=== PATIENT | female | born 1970 | race Caucasian/White ===

== ENCOUNTER 2019-10-28 09:46 | Outpatient (CLI) | payer BC, SELFPAY ==
--- NOTE | ~2019-10-28 | XR_ITS ---
EXAMINATION: XR lg joint inject/asp w image DATE: 10/28/2019 10:47 INDICATION: Left shoulder adhesive capsulitis TECHNIQUE: A time-out was performed to verify the patient's name, date of , and procedure to b e performed. The procedure including the risks, benefits, and alternatives was discussed with the pat ient. Risks discussed included bleeding and infection. The patient understood the risks and agreed to proceed. The skin overlying the rotator cuff interval of the left glenohumeral joint was prepped an d draped in usual sterile fashion. Anesthetic was administered with 1% lidocaine subcutaneously. A 22 G needle was advanced under fluoroscopic guidance into the joint. Injection of 0.4 mL of Omnipaqu e 240 confirmed intra-articular position of the needle. Subsequently, injectate consisting of 4 mm o f a 3:1 mixture of 1% lidocaine: 40 mg/mL triamcinolone for a total dosage of 40 mg triamcinolone was instilled. Washout of contrast was seen confirming intra-articular administration. The needle was re moved and the entry site was cleaned and dressed. There were no immediate complications. Fluoroscopy exposure time was 0.1 minutes. The total number of images was 2. FINDINGS: Real-time fluoroscopy demonstrates the needle in the left glenohumeral joint. Patient's akash n prior to procedure:3/10. Patient's pain following the procedure: 0/10. IMPRESSION: 1. Left glenohumeral injection of local anesthetic and steroid with decrease in the patient's present ing pain. Reviewed, dictated and finalized at location A. SERVICE INSTRUCTOR IMPRESSION: 1. Left glenohumeral injection of local anesthetic and steroid with decrease in the patient's presenting pain.
== END 2019-10-28 09:47 | disposition home or self-care (01) ==
PROVIDERS: PCP Family Medicine; Visit Provider Physician Assistant
DX: M75.02 Adhesive capsulitis of left shoulder (principal)
CPT/HCPCS: 20610; 77002; J3301; Q9966

== ENCOUNTER → 2021-03-05 14:22 | Outpatient (CLI) | payer OTHER, SELFPAY ==
--- NOTE | ~2021-03-05 | XR_ITS ---
XR_CERV2-3V_CR INDICATION: Neck pain TECHNIQUE: 3 views of the cervical spine. FINDINGS: No prior studies for comparison. The cervical spine is visualized to the cervicothoracic junction. There is no prevertebral soft tiss ue swelling, listhesis, or loss of vertebral body height. Intervertebral disc spaces are normal. Th e osseous central canal is patent. No displaced cervical spine fractures are identified. IMPRESSION: 1. No acute osseous abnormality of the cervical spine. Reviewed, dictated and finalized at location A.
== END ==
PROVIDERS: PCP Family Medicine; Visit Provider Physician Assistant
DX: M54.2 Cervicalgia (principal)
CPT/HCPCS: 72040

== ENCOUNTER 2022-05-25 14:25 | Outpatient (CLI) | payer OTHER, SELFPAY ==
--- NOTE | ~2022-05-25 | US_ITS ---
EXAMINATION: US venous doppler [facility] DATE: 05/25/2022 15:05 INDICATION: Bilateral lower limb edema TECHNIQUE: Browne scale images without and with compression and Doppler images of the bilateral lower e xtremity veins were obtained. COMPARISON: None FINDINGS: The right common femoral vein, profunda femoral vein, femoral vein, popliteal vein, peroneal trunk, p osterior tibial veins, and greater saphenous vein are patent. The left common femoral vein, profunda femoral vein, femoral vein, popliteal vein, peroneal trunk, po sterior tibial veins, and greater saphenous vein are patent. IMPRESSION: 1. Patent bilateral lower extremity veins. No evidence of deep venous thrombosis. Reviewed, dictated and finalized at location A. IMPRESSION: 1. Patent bilateral lower extremity veins. No evidence of deep venous thrombosi s.
--- NOTE | ~2022-05-25 | XR_ITS ---
XR lumbar spine 2-3V 05/25/2022 14:51 Indication: Low back pain Procedure: 2 views lumbar spine Comparison: No prior studies for comparison. Findings: Vertebral body heights are maintained. Pedicles intact. Sacral foramen are symmetric. No fr acture, subluxation or spondylolisthesis. Impression: 1: No significant abnormality of the lumbar spine. Reviewed, dictated and finalized at location B. Impression: 1: No significant abnormality of the lumbar spine.
== END 2022-05-25 14:26 | disposition home or self-care (01) ==
PROVIDERS: PCP Family Medicine; Visit Provider Physician Assistant
DX: R60.9 Edema, unspecified (principal)
CPT/HCPCS: 72100; 93970

== ENCOUNTER 2023-12-29 00:42 | Day surgery (SDC) | payer OTHER, SELFPAY ==
--- NOTE | 2023-12-20 15:51 | PC.NURSE ---
Report to the Outpatient Waiting Room, entrance under the green pavilion located off [facility], at time ____7:15 am___ on date ____[id number]___. Planned Procedure Time: ____9:15am____. Time changes happen often and if your time is changed the preop area will call you the afternoon before. - You and your visitor will be asked to self-screen and do not enter if you have any COVID symptoms. - A mask is optional within the hospital at this time. Patients may have clear liquids (water, carbonated beverages, clear teas, apple juice) until 3 hours prior to surgery with a maximum of 20 ounces. (stop liquids at 6:15 am) - No food from midnight until time of surgery Take the following medications with a SIP of water the morning of surgery: _Bupropion, Topiramate. May take Flonase [place]. DO NOT STOP ANY OF YOUR OTHER PRESCRIPTION MEDICATIONS PRIOR TO SURGERY ?EXCEPT THE FOLLOWING Medications to discontinue per physician Hold Allyn morning of surgery. Hold Naltrexone morning of surgery. Hold Vitamin D x 3 days prior to surgery. Please no make-up, nail martiniquais, hairspray, perfume, deodorant, or body powder the day of surgery. No jewelry (including any body piercings) or valuables the day of surgery, leave them at home. Please take a shower or bath the night before, or the morning of, surgery with an antibacterial soap. Wear comfortable, loose fitting clothing. - Jewelry must be removed prior to entering the operating room. Rings and piercings that are not removed may be cut off. - The hospital will not accept responsibility for valuables. - Please leave all valuables, including medications, at home the day of surgery. If you are going home after surgery, a licensed vacuum truck driver must drive you home. - NO public transportation without another adult if you receive anesthesia. - We recommend that an adult stay with you for 24 hours following discharge. - We also recommend that you do not drive, make important decision, drink alcoholic beverages, or take any drugs that were not prescribed by your health care provider for at least 24 hours after your discharge time. Follow any additional instructions given to you from your surgeon. If you or anyone in your household have experienced Covid symptoms in the past week, please notify your surgeon or the nurse liaison at the phone number below for possible testing. Telephone instructions given to ___Eunice (patient) and asked if any additional questions and then verbalized understanding. Patient advised to call surgeon office or pre surgery nurse liaison [phone] if any additional questions.
[2023-12-20 16:19] VITALS: BMI 24.7
--- NOTE | 2023-12-24 14:58 | PM.IMHP ---
H&P: HPI History of Present Illness Date/Time: 12/24/23 14:58 Chief Complaint: incontinence Narrative: 53-year-old with stress incontinence who desires surgical correction Review of Systems Review of Systems: All systems reviewed & are unremarkable except as noted in HPI and below PMFSH Past Medical History Medical History Depression Mast cell activation syndrome Migraines Non-allergic rhinitis PMDD (premenstrual dysphoric disorder) Stress incontinence Surgical History Surgical History History of endometrial ablation 07/2009 History of foot surgery 1997 History of left salpingo-oophorectomy 10/25/2017 History of nasal septoplasty History of tonsillectomy History of total vaginal hysterectomy 09/11/2013 Hx of LASIK 2009 Family History Family History Father Heart disease Mother No problems noted. Social History Social History Smoking status: Never smoker Second hand tobacco smoke exposure: No Alcohol intake: current Alcohol use details: rarely less than one a week Substance use: never Substance use type: does not use Lack of Transportation: No Lack of Food: Never True Current Housing: I Have Housing Concerned About Future Housing: No Difficulty Paying Gas/Electric Bills: No Difficulty Paying for Meds: No Currently Unemployed: YES Education: Bachelor's Degree Difficulty w/ Childcare or Family Care: No Living arrangements: with family Occupation/Education: occupation Gender identity (if verbalized by the patient): Female Meds Home Medications and Allergies Home Medications Medication Instructions Recorded Confirmed Type amitriptyline 25 mg tablet 25 mg PO HS 11/04/22 12/20/23 History topiramate 50 mg tablet 50 mg PO DAILY 11/04/22 12/20/23 History zolpidem 5 mg tablet 5 mg PO QHS #30 tabs 09/27/23 12/20/23 Rx bupropion HCl 100 mg tablet,12 hr See Rx Instructions .Route 12/19/23 12/20/23 Rx sustained-release .COMPLEX #270 tabs calcium-vitamin D2 1,000 units BYMOUTH DAILY 12/20/23 12/20/23 History fluticasone propionate 50 1 spray intranasal DAILY 12/20/23 12/20/23 History mcg/actuation nasal spray,suspension naltrexone 50 mg tablet 4.5 mg PO DAILY 12/20/23 12/20/23 History Allergies Allergy/AdvReac Type Severity Reaction Status Date / Time erythromycin base Allergy Unknown UNKNOWN Verified 12/20/23 16:25 REACTION Exam Narrative: no acute distress normal breathing urethral mobility documented Assessment and Plan Assessment and plan (1) JULY (stress urinary incontinence, female): Code(s): N39.3 - Stress incontinence (female) (male) Status: Acute Assessment and Plan: plan for urethral sling. Understands risks of bleeding, infection, damage to surrounding organs, damage to the urinary tract, vaginal mesh extrusion, urinary tract mesh erosion, obstructive voiding requiring secondary procedure, hip and leg pain. Agrees to proceed
--- NOTE | 2023-12-29 04:42 | WPDHPUPDATE1 ---
History and Physical Update Update Date/Time: 12/29/23 04:42 History and Physical has been reviewed, including an updated exam of the patient. There are NO changes in the patient's condition. Risks, benefits, and alternatives have been discussed and questions answered. Patient agrees to proceed with procedure.
--- NOTE | 2023-12-29 07:06 | WPDANESEPPF ---
Anes - Initial Pre Proc Eval Procedure: Operation Date: 12/29/23 08:30 Proposed Procedures p Urethral Sling - Dominick Simpson MD Date/Time: 12/29/23 07:06 Surgeon: Dominick Simpson MD Pre Op Diagnosis: stress incont Patient Data Age: 53 Gender: F Height: 1.6 m Weight: 63.5 kg Allergies Allergy/AdvReac Type Severity Reaction Status Date / Time erythromycin base Allergy Unknown UNKNOWN Verified 12/20/23 16:25 REACTION Home Medications Medication Instructions Recorded Confirmed Type amitriptyline 25 mg tablet 25 mg PO HS 11/04/22 12/20/23 History topiramate 50 mg tablet 50 mg PO DAILY 11/04/22 12/20/23 History bupropion HCl 100 mg tablet,12 hr See Rx Instructions .Route 12/19/23 12/20/23 Rx sustained-release .COMPLEX #270 tabs calcium-vitamin D2 1,000 units BYMOUTH DAILY 12/20/23 12/20/23 History fluticasone propionate 50 1 spray intranasal DAILY 12/20/23 12/20/23 History mcg/actuation nasal spray,suspension naltrexone 50 mg tablet 4.5 mg PO DAILY 12/20/23 12/20/23 History zolpidem 5 mg tablet 5 mg PO QHS #30 tabs 12/24/23 Rx Patient hx anesthesia problems: post op nausea/vomiting Family hx anesthesia problems: none Results Review: All pre-operative results and documents have been reviewed as part of the pre-operative evaluation. [facility] Past Medical History Medical History Depression Mast cell activation syndrome Migraines Non-allergic rhinitis PMDD (premenstrual dysphoric disorder) Stress incontinence Surgical History Surgical History History of endometrial ablation 07/2009 History of foot surgery 1997 History of left salpingo-oophorectomy 10/25/2017 History of nasal septoplasty History of tonsillectomy History of total vaginal hysterectomy 09/11/2013 Hx of LASIK 2009 Family History Family History Father Heart disease Mother No problems noted. Social History Social History Smoking status: Never smoker Second hand tobacco smoke exposure: No Alcohol intake: current Alcohol use details: rarely less than one a week Substance use: never Substance use type: does not use Lack of Transportation: No Lack of Food: Never True Current Housing: I Have Housing Concerned About Future Housing: No Difficulty Paying Gas/Electric Bills: No Difficulty Paying for Meds: No Currently Unemployed: YES Education: Bachelor's Degree Difficulty w/ Childcare or Family Care: No Living arrangements: with family Occupation/Education: occupation Gender identity (if verbalized by the patient): Female Anes - Eval Final PreProcedure Day of Procedure 12/29/23 07:06 Patient weight: normal Heart: regular rate and rhythm Lungs: clear to auscultation Airway: Mallampati scale class II Neurological: alert and oriented Last oral intake: >/= 8 hours ASA classification: II Emergent: no Anesthetic plan: proceed Anesthesia type and monitoring: general GIVS and standard monitoring Results Review: All pre-operative results and documents have been reviewed as part of the pre-operative evaluation. Informed Consent: The patient's anesthetic plan and its attendant risks and benefits were discussed with the patient/family/POA. Questions were solicited and answers provided to the satisfaction of the patient/family/POA.
[2023-12-29 07:20] VITALS: BP 118/73; PULSE 77; RESP 14; TEMP 36.2; O2SAT 100
[2023-12-29] MEDS: SCOPOLAMINE 1 MG PATCH 1 PATCH TRANSDERM (07:24)
[2023-12-29] MEDS: LACTATED RINGERS 1,000 ML 30 ML IV CONT (07:24)
[2023-12-29] MEDS: ceFAZolin 2 GM/D5W 50 ML 2 GM/50 ML BAG IVPB (07:58)
[2023-12-29] MEDS: BUPIVACAINE/EPINEPHRINE 0.5% 30 ML VIAL 20 ML INFILTRATE (08:19)
--- NOTE | 2023-12-29 08:31 | W.PM.PROC2 ---
Procedure Note - Detailed Date of Procedure 12/29/23 Pre-op Diagnosis stress incont Post-op Diagnosis Same Procedure Performed mid urethral sling cystoscopy Surgeon Dominick Simpson MD Anesthesia MAC and Local Indications This is a female with confirm stress urinary incontinence. She desires surgical correction. She understands the risks of bleeding, infection, injury to the urinary tract, vaginal mesh extrusion, urinary tract mesh erosion, obstructive voiding requiring a secondary procedure, hip and leg pain, dyspareunia, inability to improve overactive bladder symptoms. She agrees to proceed. Description of Procedure She was correctly identified. Informed consent obtained. She was brought the operating room. She was given appropriate anesthesia. She was given appropriate perioperative antibiotics. A time-out performed. I marked out the site of the inner thigh incisions. I anesthetized the skin and made those incisions. I anesthetized the anterior vaginal wall over the mid urethra. I made a 1 cm incision. I dissected out laterally taking great care not to injure the refilled vaginal wall. I passed the helical trocars. First on the left. Then on the right. I did this from the thigh incision towards the vaginal incision. The sling was connected to the trocars and brought out through the thigh incision. I tensioned the sling appropriately. I cut and the plastic sheaths. I then closed the incision with 2 0 Vicryl. On cystoscopy there is no tumors or surgical artifact. There was no surgical artifact in the urethra. I cut the excess sling material. Close incisions with glue. She was awakened and transferred to the PACU in stable condition. Implants Urethral sling Drains No Packing No Pathology None sent Complications No immediate complications Condition Stable Disposition PACU
[2023-12-29 08:33] VITALS: BP 109/64; PULSE 77; RESP 16; O2SAT 100
[2023-12-29 09:00] VITALS: BP 108/66; PULSE 70; RESP 20
[2023-12-29 09:30] VITALS: BP 110/68; PULSE 70; RESP 20
== END 2023-12-29 09:35 | disposition home or self-care (01) ==
PROVIDERS: PCP Family Medicine; Visit Provider Urology
PROC: (CPT 57288; principal; 2023-12-29 08:30)
DX: N39.3 Stress incontinence (female) (male) (principal); F32.A Depression, unspecified
CPT/HCPCS: 57288; A9270; C1771; J0690; J1100; J2250; J2405; J2704; J3010; J7120

== ENCOUNTER 2024-12-06 00:19 | Day surgery (SDC) | payer OTHER, SELFPAY ==
[2024-11-29 15:30] VITALS: BMI 23.4
--- OUTSIDE RECORDS SUMMARY | 2024-12-06 00:22 | XMS_ITS | Continuity of Care Document ---
Author Organization [facility] Address [address] [facility] [address] [place] [address] Phone Care Team Providers Care Washer Engineer Name Role Phone Kyle Byrd MD Unavailable Unavailable Allergies, Adverse Reactions, Alerts Substance Reaction Status Criticality No Known Allergies Active No Inform ation Medications Medication Instructions Dosage Effective Dates (start - stop) Status Comments NALTREXONE HCL (unknown strength) take 4.5mg by oral route every day Not Available - Active Allyn Allergy 180 mg tablet take 1 tablet by oral route every day 180 MG - Active fluticasone propionate 50 mcg/actuation nasal spray,suspension 2 sprays by intranasal route every day in each nostril - Active topiramate 50 mg tablet take 1 tablet by oral route 2 times every day 50 MG - Active bupropion HCl 100 mg tablet take 2 tablet by oral route every morning and 1 tablet every afternoon - Active trazodone 50 mg tablet take 1 tablet by oral route every day at bedtime 50 MG - Active Benadryl Allergy 25 mg tablet take 2 tablet by oral route every 4 - 6 hours as needed 50 MG - Active Vitamin D3 50 mcg (2,000 unit) capsule take 1 capsule by oral route every day 1 capsule - Active Procedures Procedure Date New (Level 5) OFFICE/OUTPATIENT VISIT Advance Directives Directive Yes / No Effective Date File Name No Information Encounters Encounter Description Practice Location Reason(s) For Visit Diagnoses Date Provider Providers Copied on Encounter New (Level 5) OFFICE/OUTPA TIENT VISIT [facility], [address] [address], [place], [place], [id number], tel:[phone] [facility] adverse food reactions (chief complaint) Other adverse food reaction, initial encounterNause aChronic rhinitis 0 Carson Wright. [address], [place], [address], [place]. tel: [phone] Referring Provider: Cleve Alfredo, [address] [facility], [place], [address]. tel:[phone] Family History Family Member Type Diagnosis Age At Onset Problem No family history of Heredit aleksander angioedema Problem No family history of Allergi es, food Problem No family history of Sinusit is Problem No family history of Eosinop hilic esophagitis Problem No family history of Asthma Father Problem Allergies, environmental Problem No family history of Immunod eficiency disorder Problem No family history of Cystic fibrosis Problem No family history of Hives Problem No family history of Eczema Payers Payer name Insurance type Covered green party ID Authoriza tiyazmin(s) [facility] Choice Plus CI [id number] Social History Type Description Quantity Date Captured Comments Alcohol Use Details Caffeine Use Details Unknown Tobacco Use Status Current non-smoker Smoking Status Never smoker Non-Smoking Tobacco Use Details : No Details Available : No Details Available Sex Female Vital Signs Date / Time: Height Weight BMI Pulse Rate Blood Pressure Temperature Respiratory Rate Body Surface Area Head Circumference Head Circ. Percentile Wt./Zain. Percentile BMI percentile Pulse Ox Inhaled Ox 8:42 AM 63.00 in 50.802 kg (112.00 lbs) 19.8 4 kg/m eter (2) 90 /min 108/72 mm[Hg] 97.60 F 95 % Chief Complaint And Reason For Visit From encounter dated '03/18/2020 08:40'. adverse food reactions (chief complaint). 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 She was accompanied by her for today's visit.She was inher usual state of health until December 2017 when she starting having nausea after drinking beer. Over the next few weeks this progressed to nausea after anything she ate, leading to anorexia and weight loss. She also started having diffuse joint pain as well, no fevers or rashes. No adverse respiratory or CV symptoms. She consulted with Dr. Sr (GI in [place]) in February 2018 and underwent EGD,which showed non-bleeding erosive gastropathy and erythematous mucosa in the gastric antrum. Biopsies of esophagus, stomach and duodenum taken and results unknown, although a separate handout indicated that she had benign mast calls in areas of the gastrointestinal tract suggestive of mast cell activation syndrome. He reportedly sent her for lactulose breath test and blood/urinestudies. I do not have any of these results to review. He initially started her on a medication regimen consisting of Allyn, Zantac, Quercetin, vitamins and probiotics. This initially helped with her nausea but then lost its efficacy. Low-dose naltrexone (LDN) was then added and her nausea did improve but still occurs post-prandially. Trials of montelukast, cromolyn, ketotifen and zileuton werediscussed but never done. She then saw a historic sites registrar in [place] and was started on a low histamine diet, which did not help. She then went to a Wellness Clinic in [place] in May 2019 and underwent labwork and stool studies which reportedly were not suggestive of MCAS. Results are scanned in our EMR, no serum tryptase or urinary mast cell mediators noted. She was advised to start a Paleo diet and she is no longer losing weight but continues to have post-prandial nausea along with intermittent epigastric pain and heartburn. Her joint pain has improved, which she attributes to the LDN. She and her inquire about the potential benefit of food allergy testing.She has a long history of seasonal allergy symptoms but reportedly had negative allergy testing many years ago. She does take Allyn and Flonase daily. He/She denies a history of environmental allergies, asthma, eczema, food allergies, medication allergies ,urticaria/angioedema, recurrent infections, contact dermatitis, latex allergy or stinging insect hypersensitivity.FHx: Dad - ARSHx: Lives in [place] with husbandand 2 children. House built in 2006, has lived there whole time. 1 dog. Central A/C, propane heat. Carpet in [place]. Partially finished basement, no visible mold. No smokers in home. 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 She was accompanied by her for today's visit.She was in her usual state of health until December 2017 when she starting having nausea after drinking beer. Over the next few weeks this progressed to nausea after anything she ate, leading to anorexia and weight loss. She also started having diffuse joint pain as well, no fevers or rashes. No adverse respiratory or CV symptoms. She consulted with Dr. Sr (GI in [place]) in February 2018 and underwent EGD, which showed non-bleeding erosive gastropathy and erythematous mucosa in the gastric antrum. Biopsies of esophagus, stomach and duodenum taken and results unknown, although a separate handout indicated that she had benign mast calls in areas of the gastrointestinal tract suggestive of mast cell activation syndrome. He reportedly sent her for lactulose breath test and blood/urine studies. I do not have any of these results to review. He initially started her on a medication regimen consisting of Allyn, Zantac, Quercetin, vitamins and probiotics. This initially helped with her nausea but then lost its efficacy. Low-dose naltrexone (LDN) was then added and her nausea did improve but still occurs post-prandially. Trials of montelukast, cromolyn, ketotifen and zileuton were discussed but never done. She then saw a historic sites registrar in [place] and was started on a low histamine diet, which did not help. She then went to a Wellness Clinic in [place] in May 2019 and underwent labwork and stool studies which reportedly were not suggestive of MCAS. Results are scanned in our EMR, no serum tryptase or urinary mast cell mediators noted. She was advised to start a Paleo diet and she is no longer losing weight but continues to have post-prandial nausea along with intermittent epigastric pain and heartburn. Her joint pain has improved, which she attributes to the LDN. She and her inquire about the potential benefit of food allergy testing.She has a long history of seasonal allergy symptoms but reportedly had negative allergy testing many years ago. She does take Allyn and Flonase daily. He/She denies a history of environmental allergies, asthma, eczema, food allergies, medication allergies ,urticaria/angioedema, recurrent infections, contact dermatitis, latex allergy or stinging insect hypersensitivity.FHx: Alannah Zhong: Lives in [place] with and 2 children. House built in 2006, has lived there whole time. 1 dog. Central A/C, propane heat. Carpet in [place]. Partially finished basement, no visible mold. No smokers in home. Never smoker, occasional EtOH. flight teacher. Functional Status Date Functional Assessmen t No Information Instructions Date Instruction Additional Infor mation No Information Assessments Type Assessment Date assessment Other adverse food reaction, ini tial encounter assessment Nausea assessment Chronic rhinitis Mental Status Date Cognitive Assessment Orientation - [place] ed to time, place, person, situation. Patient Care Teams Name Effective Dates (start - stop) Status Members No Information
[2024-12-06 09:31] VITALS: BP 135/90; PULSE 91; RESP 18; TEMP 36.1; O2SAT 96; BMI 24.2
[2024-12-06] MEDS: LACTATED RINGERS 1,000 ML 150 ML IV CONT (09:42)
--- NOTE | 2024-12-06 09:56 | WPDANESEPPF ---
Anes - Initial Pre Proc Eval Procedure: Operation Date: 12/06/24 11:00 Proposed Procedures p Screening Colonoscopy - Renato Myers MD Date/Time: 12/06/24 09:56 Surgeon: Renato Myers MD Pre Op Diagnosis: Screening Patient Data Age: 54 Gender: F Height: 1.6 m Weight: 62 kg Last Vital Signs Temp 97 F L 12/06/24 09:31 Pulse 91 12/06/24 09:31 Resp 18 12/06/24 09:31 BP 135/90 12/06/24 09:31 Pulse Ox 96 12/06/24 09:31 O2 Del Method Room Air 12/06/24 09:31 Allergies Allergy/AdvReac Type Severity Reaction Status Date / Time erythromycin base Allergy Unknown UNKNOWN Verified 12/06/24 09:29 REACTION Home Medications ?Medication ?Instructions ?Recorded ?Confirmed ?Type calcium-vitamin D2 1,000 units BYMOUTH DAILY 12/20/23 12/06/24 History fluticasone propionate 50 1 spray intranasal DAILY 12/20/23 12/06/24 History mcg/actuation nasal spray,suspension Vitamin B-6 50 mg BYMOUTH 10/01/24 10/01/24 History bupropion HCl 100 mg tablet,12 hr See Rx Instructions .Route 10/01/24 12/06/24 Rx sustained-release .COMPLEX #270 tabs quercetin 500 mg capsule mg PO 10/01/24 10/01/24 History rizatriptan 10 mg tablet See Rx Instructions PO .COMPLEX #9 10/01/24 11/29/24 Rx tabs topiramate 50 mg tablet See Rx Instructions .Route 10/01/24 12/06/24 Rx .COMPLEX #180 tabs zolpidem 5 mg tablet 5 mg PO QHS 30 days #30 tabs 10/01/24 12/06/24 Rx naltrexone 50 mg tablet 4.5 mg (0.09 x 50 mg) PO DAILY #90 10/02/24 12/06/24 Rx tabs cromolyn 100 mg/5 mL oral 200 mg PO QID 11/29/24 12/06/24 History concentrate Patient hx anesthesia problems: none Family hx anesthesia problems: none Results Review: All pre-operative results and documents have been reviewed as part of the pre-operative evaluation. [facility] Past Medical History Medical History (Updated 10/01/24 @ 18:14 by Erica Barton PA-C) Stress incontinence Mast cell activation syndrome Depression Migraines PMDD (premenstrual dysphoric disorder) Non-allergic rhinitis Surgical History Surgical History History of bladder suspension procedure 12/2023 History of nasal septoplasty History of left salpingo-oophorectomy 10/25/2017 History of total vaginal hysterectomy 09/11/2013 Hx of LASIK 2010 History of endometrial ablation 07/2009 History of foot surgery 1997 History of tonsillectomy Family History Family History Father Heart disease Mother No problems noted. Social History Social History Smoking status: Former smoker Second hand tobacco smoke exposure: No Alcohol intake: current Alcohol use details: rarely less than one a week Substance use: never Substance use type: does not use Do You Feel Safe in your Home?: Yes Lack of Transportation: No Lack of Food: Never True Current Housing: I Have Housing Concerned About Future Housing: No Difficulty Paying Gas/Electric Bills: No Difficulty Paying for Meds: No Currently Unemployed: YES Education: Bachelor's Degree Difficulty w/ Childcare or Family Care: No Living arrangements: with family Occupation/Education: occupation Gender identity (if verbalized by the patient): Female Spiritual care concerns: No Anes - Eval Final PreProcedure Day of Procedure 12/06/24 09:56 Patient weight: normal Heart: regular rate and rhythm Lungs: clear to auscultation Airway: Mallampati scale class II Neurological: alert and oriented Last oral intake: >/= 8 hours ASA classification: II Emergent: no Anesthetic plan: proceed Anesthesia type and monitoring: general GIVS and standard monitoring Results Review: All pre-operative results and documents have been reviewed as part of the pre-operative evaluation. Informed Consent: The patient's anesthetic plan and its attendant risks and benefits were discussed with the patient/family/POA. Questions were solicited and answers provided to the satisfaction of the patient/family/POA.
--- NOTE | 2024-12-06 10:34 | PM.IMHP ---
H&P: HPI History of Present Illness Date/Time: 12/06/24 10:34 Chief Complaint: Screening colonoscopy Narrative: This is the patient's first colonoscopy. There are no GI symptoms and there is no family history of colorectal cancer. Review of Systems Review of Systems: All systems reviewed & are unremarkable except as noted in HPI and below PMFSH Past Medical History Medical History (Updated 12/06/24 @ 10:35 by Renato Myers MD) Stress incontinence Mast cell activation syndrome Depression Migraines PMDD (premenstrual dysphoric disorder) Non-allergic rhinitis Surgical History Surgical History History of bladder suspension procedure 12/2023 History of nasal septoplasty History of left salpingo-oophorectomy 10/25/2017 History of total vaginal hysterectomy 09/11/2013 Hx of LASIK 2010 History of endometrial ablation 07/2009 History of foot surgery 1997 History of tonsillectomy Family History Family History Father Heart disease Mother No problems noted. Social History Social History Smoking status: Former smoker Second hand tobacco smoke exposure: No Alcohol intake: current Alcohol use details: rarely less than one a week Substance use: never Substance use type: does not use Do You Feel Safe in your Home?: Yes Lack of Transportation: No Lack of Food: Never True Current Housing: I Have Housing Concerned About Future Housing: No Difficulty Paying Gas/Electric Bills: No Difficulty Paying for Meds: No Currently Unemployed: YES Education: Bachelor's Degree Difficulty w/ Childcare or Family Care: No Living arrangements: with family Occupation/Education: occupation Gender identity (if verbalized by the patient): Female Spiritual care concerns: No Meds Home Medications and Allergies Home Medications ?Medication ?Instructions ?Recorded ?Confirmed ?Type calcium-vitamin D2 1,000 units BYMOUTH DAILY 12/20/23 12/06/24 History fluticasone propionate 50 1 spray intranasal DAILY 12/20/23 12/06/24 History mcg/actuation nasal spray,suspension Vitamin B-6 50 mg BYMOUTH 10/01/24 10/01/24 History bupropion HCl 100 mg tablet,12 hr See Rx Instructions .Route 10/01/24 12/06/24 Rx sustained-release .COMPLEX #270 tabs quercetin 500 mg capsule mg PO 10/01/24 10/01/24 History rizatriptan 10 mg tablet See Rx Instructions PO .COMPLEX #9 10/01/24 11/29/24 Rx tabs topiramate 50 mg tablet See Rx Instructions .Route 10/01/24 12/06/24 Rx .COMPLEX #180 tabs zolpidem 5 mg tablet 5 mg PO QHS 30 days #30 tabs 10/01/24 12/06/24 Rx naltrexone 50 mg tablet 4.5 mg (0.09 x 50 mg) PO DAILY #90 10/02/24 12/06/24 Rx tabs cromolyn 100 mg/5 mL oral 200 mg PO QID 11/29/24 12/06/24 History concentrate Allergies Allergy/AdvReac Type Severity Reaction Status Date / Time erythromycin base Allergy Unknown UNKNOWN Verified 12/06/24 09:29 REACTION Vital Signs Vital Signs - 24 hr 12/06/24 09:31 Temperature 97 F L Pulse Rate 91 Respiratory Rate 18 Blood Pressure 135/90 Pulse Oximetry 96 Oxygen Delivery Room Air Exam Const: General: cooperative and healthy appearing Resp: Effort & Inspection: normal respiratory effort and able to speak in complete sentences Auscultation: clear to auscultation bilaterally Cardio: Rate: regular rate Rhythm: regular rhythm GI: Inspection: normal to inspection GI Palp: No No hepatosplenomegaly present Auscultation: normal bowel sounds Rectal Exam: deferred Skin: General skin exam: normal color Psych: Appearance: grossly normal Mental Status: mental status grossly normal Assessment and Plan Assessment and plan (1) Encounter for screening colonoscopy: Code(s): Z12.11 - Encounter for screening for malignant neoplasm of colon Status: Acute Assessment and Plan: The patient is deemed a good candidate for the procedure. Consent signed. Will proceed.
--- NOTE | 2024-12-06 10:56 | P.HP_ITS ---
H&P: HPI History of Present Illness Date/Time: 12/06/24 10:56 Chief Complaint: Screening colonoscopy Narrative: This is the patient's first colonoscopy. There are no GI symptoms and there is no family history of colorectal cancer. Review of Systems Review of Systems: All systems reviewed & are unremarkable except as noted in HPI and below PMFSH Past Medical History Medical History (Updated 12/06/24 @ 10:35 by Renato Myers MD) Stress incontinence Mast cell activation syndrome Depression Migraines PMDD (premenstrual dysphoric disorder) Non-allergic rhinitis Surgical History Surgical History History of bladder suspension procedure 12/2023 History of nasal septoplasty History of left salpingo-oophorectomy 10/25/2017 History of total vaginal hysterectomy 09/11/2013 Hx of LASIK 2010 History of endometrial ablation 07/2009 History of foot surgery 1997 History of tonsillectomy Family History Family History Father Heart disease Mother No problems noted. Social History Social History Smoking status: Former smoker Second hand tobacco smoke exposure: No Alcohol intake: current Alcohol use details: rarely less than one a week Substance use: never Substance use type: does not use Do You Feel Safe in your Home?: Yes Lack of Transportation: No Lack of Food: Never True Current Housing: I Have Housing Concerned About Future Housing: No Difficulty Paying Gas/Electric Bills: No Difficulty Paying for Meds: No Currently Unemployed: YES Education: Bachelor's Degree Difficulty w/ Childcare or Family Care: No Living arrangements: with family Occupation/Education: occupation Gender identity (if verbalized by the patient): Female Spiritual care concerns: No Meds Home Medications and Allergies Home Medications ?Medication ?Instructions ?Recorded ?Confirmed ?Type calcium-vitamin D2 1,000 units BYMOUTH DAILY 12/20/23 12/06/24 History fluticasone propionate 50 1 spray intranasal DAILY 12/20/23 12/06/24 History mcg/actuation nasal spray,suspension Vitamin B-6 50 mg BYMOUTH 10/01/24 10/01/24 History bupropion HCl 100 mg tablet,12 hr See Rx Instructions .Route 10/01/24 12/06/24 Rx sustained-release .COMPLEX #270 tabs quercetin 500 mg capsule mg PO 10/01/24 10/01/24 History rizatriptan 10 mg tablet See Rx Instructions PO .COMPLEX #9 10/01/24 11/29/24 Rx tabs topiramate 50 mg tablet See Rx Instructions .Route 10/01/24 12/06/24 Rx .COMPLEX #180 tabs zolpidem 5 mg tablet 5 mg PO QHS 30 days #30 tabs 10/01/24 12/06/24 Rx naltrexone 50 mg tablet 4.5 mg (0.09 x 50 mg) PO DAILY #90 10/02/24 12/06/24 Rx tabs cromolyn 100 mg/5 mL oral 200 mg PO QID 11/29/24 12/06/24 History concentrate Allergies Allergy/AdvReac Type Severity Reaction Status Date / Time erythromycin base Allergy Unknown UNKNOWN Verified 12/06/24 09:29 REACTION Vital Signs Vital Signs - 24 hr 12/06/24 09:31 Temperature 97 F L Pulse Rate 91 Respiratory Rate 18 Blood Pressure 135/90 Pulse Oximetry 96 Oxygen Delivery Room Air Exam Const: General: cooperative and healthy appearing Resp: Effort & Inspection: normal respiratory effort and able to speak in complete sentences Auscultation: clear to auscultation bilaterally Cardio: Rate: regular rate Rhythm: regular rhythm GI: Inspection: normal to inspection GI Palp: No No hepatosplenomegaly present Auscultation: normal bowel sounds Rectal Exam: deferred Skin: General skin exam: normal color Psych: Appearance: grossly normal Mental Status: mental status grossly normal Assessment and Plan Assessment and plan (1) Encounter for screening colonoscopy: Code(s): Z12.11 - Encounter for screening for malignant neoplasm of colon Status: Acute Assessment and Plan: The patient is deemed a good candidate for the procedure. Consent signed. Will proceed.
[2024-12-06 10:58] VITALS: BP 116/69; PULSE 73; RESP 15; O2SAT 100
[2024-12-06 11:08] VITALS: BP 113/71; PULSE 72; RESP 16; O2SAT 100
[2024-12-06 11:18] VITALS: BP 127/79; PULSE 71; RESP 16; O2SAT 100
== END 2024-12-06 11:35 | disposition home or self-care (01) ==
PROVIDERS: PCP Family Medicine; Visit Provider Internal Medicine Gastroenterology
PROC: 0DJD8ZZ Inspection of Lower Intestinal Tract, Via Natural or Artificial Opening Endoscopic (ICD-10-PCS; CPT 45378; principal; 2024-12-06 11:00)
DX: Z12.11 Encounter for screening for malignant neoplasm of colon (principal); N39.3 Stress incontinence (female) (male); F32.A Depression, unspecified; D89.40 Mast cell activation, unspecified; F32.81 Premenstrual dysphoric disorder; Z98.890 Other specified postprocedural states; Z98.891 History of uterine scar from previous surgery; Z87.891 Personal history of nicotine dependence; Z82.49 Family history of ischemic heart disease and other diseases of the circulatory system
CPT/HCPCS: 45378; J2003; J2704; J7120